=== PATIENT | female | born 1980 | race Caucasian/White ===

== ENCOUNTER 2022-10-29 09:19 | Emergency (ER) | payer SELFPAY ==
[2022-10-29] MEDS ORDERED: Gabapentin 300 MG CAP PO SCH (10:45)
== END 2022-10-29 10:47 | disposition home or self-care (01) ==
LOC: ERS 09:19
DX: S81.801D Unspecified open wound, right lower leg, subsequent encounter (principal); I10 Essential (primary) hypertension; F17.210 Nicotine dependence, cigarettes, uncomplicated; W34.00XD Accidental discharge from unspecified firearms or gun, subsequent encounter; Z79.899 Other long term (current) drug therapy
CPT/HCPCS: 99283